=== PATIENT | male | born 1940 | race Caucasian/White ===

== ENCOUNTER 2021-10-21 11:21 | Emergency (ER) | payer MEDICARE, BC, SELFPAY ==
[2021-10-21 11:29] VITALS: BP 127/89; PULSE 76; RESP 18; TEMP 35.9; O2SAT 96
--- NOTE | 2021-10-21 11:47 | CRLHL7_ITS ---
For Patients: As a result of the Cures Act, medical imaging exams and procedure reports are released immediately into your electronic medical record. You may view this report before your referring provider. If you have questions, please contact your health care provider. Indication: Injury, pain Technique: Three views right wrist Comparison: None Findings: Dorsally impacted fracture of the distal radial metaphysis with dorsal angulation of the distal radial articular surface. Degenerative changes at the wrist particularly at the triscaphe joint. There appears to be fusion across the 1st metacarpal and trapezium. Impression: Dorsally impacted fracture deformity of the distal radial metaphysis with overlying splint. Dictated by Leonel Kidd MD @ 10/21/2021 12:33:52 PM (Electronically Signed)
--- NOTE | 2021-10-21 11:59 | ED.GENADULT ---
HPI - General Adult General Date Seen: 10/21/21 Chief complaint: Extremity Pain/Injury, Upper Stated complaint: Broken arm Time Seen by Provider: 10/21/21 11:44 Source: patient History of Present Illness HPI narrative: Patient is an 81-year-old male who is [place] to [place]. He reports an injury there on October 15. He is returning to [place] at the end of the month. He says he is going to drive back there starting tomorrow. He he has a splint in place and reports that the splint is very uncomfortable. He wonders if it could be changed to a cast. He is not sure what kind of injury he has, he only knows that the big bone in his arm is broken. This appears to be at the level of the wrist. He has some swelling in his hand. He has follow-up planned in [place] although it sounds as if it is a little in the air because he was not quite sure when he was going to get back to the [facility] [place]. Related Data Home Medications Medication Instructions Recorded Confirmed losartan 25 mg tablet 25 mg PO QDAY 10/21/21 10/21/21 tamsulosin 0.4 mg capsule 0.4 mg PO QDAY 10/21/21 10/21/21 zolpidem 5 mg tablet 5 mg PO .QD PRN 10/21/21 10/21/21 Allergies Allergy/AdvReac Type Severity Reaction Status Date / Time No Known Drug Allergies Allergy Verified 10/21/21 10:32 [facility] Social History Smoking Status: Former smoker Exam Narrative: Exam Narrative: Vital signs reviewed In general, an alert, very pleasant elderly male. Head: Normocephalic, atraumatic. Extremities: Examination of right upper extremity shows a sugar-tong splint in place. He has some boggy edema noted in the hand distal to the splint. There is no erythema or warmth. Distal CMS is intact. The edges of the splint are protruding in a way that is gouging into his hand. The splint overall also seems to be overly tight. Neurologic: Alert, oriented to person place. Speech fluent. Affect: Normal. Const: Vital Signs, click to edit/add: Vital Signs - 24 hr 10/21/21 11:29 Temperature 96.6 F L Pulse Rate [Right Pulse Oximeter] 76 Respiratory Rate 18 Blood Pressure [Le ft Upper Arm] 127/89 Pulse Oximetry 96 Oxygen Delivery Me thod Room Air Documenting provider has reviewed patient's vital signs: yes Course Course Hospital Course: I did recommend him that we repeat x-rays here so that I can see what kind of injury he has in place the appropriate splint. He agreed to that. X-rays of the right wrist by my review show a comminuted but minimally angulated fracture of the distal radius. I removed the sugar-tong splint, I do not think he needs sugar-tong splint so I replaced this with a sandwich splint using Ortho Glass and two [place] wraps. He tolerated this well. Much more comfortable. Distal CMS remains intact. Recommend follow up with Orthopedics on return to [place] as planned. Vital Signs Vital signs: Initial Vital Signs Temperature 96.6 F L 10/21/21 11:29 Temperature Source Temporal Artery Scan 10/21/21 11:29 Pulse Rate 76 10/21/21 11:29 Respiratory Rate 18 10/21/21 11:29 Blood Pressure 127/89 10/21/21 11:29 Blood Pressure Mean 101 10/21/21 11:29 Blood Pressure Position Sitting 10/21/21 11:29 Pulse Oximetry 96 10/21/21 11:29 Oxygen Delivery Method 10/21/21 11:29 Vital Signs Temperature 96.6 F L 10/21/21 11:29 Pulse Rate 76 10/21/21 11:29 Respiratory Rate 18 10/21/21 11:29 Blood Pressure 127/89 10/21/21 11:29 Pulse Oximetry 96 10/21/21 11:29 Oxygen Delivery Method 10/21/21 11:29 Temperature 96.6 F L 10/21/21 11:29 Pulse Rate 76 10/21/21 11:29 Respiratory Rate 18 10/21/21 11:29 Blood Pressure 127/89 10/21/21 11:29 Pulse Oximetry 96 10/21/21 11:29 Oxygen Delivery Method 10/21/21 11:29 Discharge Plan Discharge Clinical Impression: Distal radius fracture, right Patient Disposition: Home, Self-Care Condition: Improved Instructions: Wrist Fracture in Adults (ED) Additional Instructions: follow-up with orthopedics as planned on your return home. Prescriptions: No Action zolpidem 5 mg tablet 5 mg PO .QD PRN tamsulosin 0.4 mg capsule 0.4 mg PO QDAY losartan 25 mg tablet 25 mg PO QDAY Follow Up/Referrals: Provider,Not a Local [Primary Care Provider] - Stand Alone Forms: Direct Access Software Info Instructions
[2021-10-21 12:32] VITALS: BP 127/89; PULSE 76; RESP 18; TEMP 35.9
== END 2021-10-21 12:33 | disposition home or self-care (01) ==
PROVIDERS: Emergency Provider Emergency Medicine
DX: S52.501A Unspecified fracture of the lower end of right radius, initial encounter for closed fracture (principal); X58.XXXA Exposure to other specified factors, initial encounter; Y93.9 Activity, unspecified; Y92.9 Unspecified place or not applicable; Y99.9 Unspecified external cause status
CPT/HCPCS: 29125; 73110; 99283